=== PATIENT | male | born 1945 | race Caucasian/White ===

== ENCOUNTER → 2017-04-14 | Day surgery (SDC) | payer MEDICARE ==
[~2017-04-14] VITALS: Ht 180.3 cm; Wt 90.3 kg
[~2017-04-14] MED LIST: 0.9% Sodium Chloride 1,000 ML IV SCH; ACYC200C PO; ALBU8.5H2 INHALATION; ASPI-973 PO; FLUT12AE8 IH; GLUC100016 PO; LIP40 PO; METO25TA6 PO; MONT10TA20 PO; MULT-1018 PO; NITR0.4T38 SL; PANT40TA3 PO; Sodium Chloride LOK Flush 10 mL Syringe IV PRN; TRIA10.8 NS; fentaNYL-PF 50 mCg/mL 2 mL Inj IVPUSH PRN
[2017-04-14 12:07] VITALS: BP 120/66; PULSE 56; RESP 16; O2SAT 99
[2017-04-14 13:14] VITALS: BP 117/82; PULSE 54; RESP 16; O2SAT 98
[2017-04-14 13:24] VITALS: BP 114/61; PULSE 57; RESP 16; O2SAT 98
[2017-04-14 13:34] VITALS: BP 118/64; PULSE 57; RESP 16; O2SAT 95
--- NOTE | 2017-04-14 13:39 | ENDO ---
[address] [address] ENDOSCOPY PROCEDURE PATIENT: PRAKASH RUSSELL : 1945 MR#: [id number] ADMIT: 04/14/2017 JOB ID: [id number] DATE: 04/14/2017 PROCEDURE: Colonoscopy. INDICATION: History of colon polyps. Patient's ASA classification is two. Mallampati score is two. MEDICATIONS: Versed 3 mg, fentanyl 75 mcg. INSTRUMENT USED: PCF H 180 AL PREPARATION QUALITY: Fair. PROCEDURE DETAILS: After informed consent was obtained, the patient was brought into the gastrointestinal suite where he was placed on oxygen via nasal cannula and monitored with continuous pulse oximeter, telemetry, and blood pressure monitoring. A time-out was performed, then he was placed in the left lateral decubitus position and medications were administered for sedation. Digital rectal exam was performed which revealed an enlarged prostate without any palpable masses. The colonoscope was then inserted into the rectum and advanced under direct visualization to the cecum, which was identified by the presence of the ileocecal valve and appendiceal orifice. Once the cecum was reached, the colonoscope was withdrawn back into the rectum as the mucosa and lumen were examined. In the rectum, retroflexion was performed. Following retroflexion, the remaining air in the rectum was suctioned and the procedure was completed. FINDINGS: 1. In the distal ascending colon there was an approximately 5 mm sessile polyp that was removed with a cold snare. 2. Scattered diverticula were seen throughout the left side of the colon. IMPRESSION: 1. Ascending colon polyp. 2. Left-sided diverticulosis. RECOMMENDATIONS: 1. Fiber rich diet. 2. Repeat colonoscopy in five years. COMPLICATIONS: None. ESTIMATED BLOOD LOSS: Less than 5 mL.
--- NOTE | 2017-04-18 15:14 | PATH ---
SURGICAL PATHOLOGY Attending Physician:Patsy Dixon CASE STATUS: Signed Out PATIENT NAME: PRAKASH RUSSELL PID: [id number] : 1945 DATE COLLECTED:04/14/2017 19:28 SPECIMEN: Colon, Polyp CLINICAL HISTORY: 1). ASCENDING POLYP FINAL DIAGNOSIS: Ascending Colon Polyp, Biopsy: Tubular adenoma. ICD10: D12.2 GROSS DESCRIPTION: The specimen is received in one formalin filled container labeled with the patient's name, sublabeled "ascending polyp" and consists of a 0.4 x 0.3 x 0.3 CM portion of tissue which is entirely submitted in one cassette. 04/14/2017DC ICD-9 CODES: CPT CODES: 1: 87126 Electronically Signed Out Russ Haro MD, Ph.D. [facility] Pathology [facility], [place] [address] Technical component performed at [facility], [address] [place] [address] [address], [address]
== END | disposition home or self-care (01) ==
LOC: END 01:21
PROVIDERS: ATTEND Internal Medicine Gastroenterology
DX: Z12.11 Encounter for screening for malignant neoplasm of colon (principal); D12.2 Benign neoplasm of ascending colon; K57.30 Diverticulosis of large intestine without perforation or abscess without bleeding; Z86.010 Personal history of colon polyps; J45.909 Unspecified asthma, uncomplicated; E78.5 Hyperlipidemia, unspecified; K21.9 Gastro-esophageal reflux disease without esophagitis; I25.10 Atherosclerotic heart disease of native coronary artery without angina pectoris; I25.2 Old myocardial infarction; Z79.51 Long term (current) use of inhaled steroids; Z79.82 Long term (current) use of aspirin
CPT/HCPCS: 45385; 88305; 99153; G0500; J2250; J3010; J7030